=== PATIENT | female | born 1950 ===

== ENCOUNTER 2021-06-13 10:30 | Inpatient (IN) | payer OTHER ==
[~2021-06-13] VITALS: Ht 152.4 cm; Wt 93.0 kg
[2021-06-25] MEDS ORDERED: SYNTHROID125 MCG PO (11:16)
[2021-06-25] MEDS ORDERED: FOSAMAX70 MG PO (11:16)
[2021-06-25] MEDS ORDERED: ATACAND HCT 161 EACH PO (11:16)
[2021-06-25] MEDS ORDERED: METFORMIN HCL500 M3 PO (11:17)
[2021-06-25] MEDS ORDERED: ANASTROZOLE1 MG PO (11:17)
[2021-06-25] MEDS ORDERED: LIPITOR20 MG PO (11:17)
[2021-06-25] MEDS ORDERED: MAXIMUM D3325 MCG PO (11:18)
[2021-06-29] MEDS ORDERED: ACETAMINOPHEN500 M2 PO (09:30)
== END 2021-06-29 11:12 | disposition home or self-care (01) | DRG 330 ==
LOC: SURH 06-27 07:00 → O/R 06-27 07:51 → SURH 06-27 08:15
PROVIDERS: ADMIT Surgery; ATTEND Surgery
PROC: 0DTJ4ZZ Resection of Appendix, Percutaneous Endoscopic Approach (ICD-10-PCS; 2021-06-27)
PROC: 0DBH4ZZ Excision of Cecum, Percutaneous Endoscopic Approach (ICD-10-PCS; principal; 2021-06-27 07:00)
DX: D12.0 Benign neoplasm of cecum (principal); K92.1 Melena; D12.1 Benign neoplasm of appendix